=== PATIENT | female | born 1995 | race African-American/Black ===

== ENCOUNTER 2023-10-26 06:43 | Emergency (ER) | payer SELFPAY ==
[2023-10-26 07:07] VITALS: BP 139/71; PULSE 89; RESP 16; TEMP 97.9; BMI 34.1
[2023-10-26] MEDS ORDERED: ACETAMINOPHEN 325 MG TABLET (FP) ONE (08:22)
[2023-10-26] MEDS: ACETAMINOPHEN 500 MG TABLET (FP) PO ONE (08:27)
== END 2023-10-26 08:31 | disposition home or self-care (01) ==
LOC: JER 06:43
DX: R19.7 Diarrhea, unspecified (principal); R10.13 Epigastric pain
CPT/HCPCS: 99283-25